=== PATIENT | male | born 1995 | race Caucasian/White ===

== ENCOUNTER 2025-02-27 09:20 | Emergency (ER) | payer OTHER ==
[~2025-02-27] VITALS: Ht 172.7 cm; Wt 168.0 kg
[2025-02-27 09:23] VITALS: TEMP 97.6
[2025-02-27] MEDS: proparacaine 0.5% ophthalmic drops 15ml EACHEYE ONE (11:31)
--- NOTE | 2025-02-27 11:43 | Physician Documentation ---
History of Present Illness ~ Chief Complaint: Eye Pain Stated Complaint: EYE IRRATATION Time Seen by MD: 10:54 HPI 29-year-old male presents to the ED with a complaint of getting a foreign body in his eye yesterday. States he was working on a battery and had part of the corrosion in the battery flick into his eye. He flushed it out extensively. However this morning when he woke up his eye was shut with the goop coming a of the conjunctiva. Reports eye pain and somewhat blurry vision Day of Onset: Feb 27, 2025 Medication Reconciliation Allergies: Coded Allergies: No Known Allergies (Unverified , 02/27/25) Scheduled Erythromycin Base Opth. Ointment* (Erythromycin Opth. Ointment*), 1 APPLIC RIGHTEYE Q4HWA Review of Systems All Other Systems at this time: Reviewed and Negative ROS As stated above in the HPI, otherwise all systems are reviewed and negative. Physical Exam Vital Signs: Temperature: 97.6, Source: Temporal, Heart Rate: 79, Respiratory Rate: 18, BP: 185/95, Pulse Oximetry: 98, Weight: 168.000 Physical Exam General: Alert, no apparent distress. HEENT: PERRL, EOMI, no injection, moist mucous membranes. Right conjunctiva injected Psychiatric: Normal mood and affect. Skin: Normal color, warm and dry. No edema, no ecchymosis. Procedures Eye Procedure Alcaine Drops Administered: Yes Tolerated Procedure Well?: yes, no complications Procedure Note Utilize Wood's lamp with proparacaine and fluorescein found a notable corneal abrasion in his superior left aspect of the eye no foreign bodies were identified Progress Results/Orders Results/Orders Completed Orders - CARLTIA DAVIS NP Proparacaine Ophth Solution (Alcaine Oph (02/27/25 11:15) Medications Received in ER Medications (Trade) Dose Ordered Sig/Sergio Route PRN Reason Start Time Stop Time Status Last Admin Dose Admin (Alcaine ophth solution) 2 drop ONCE ONCE EACHEYE 02/27/25 11:15 02/27/25 11:16 DC 02/27/25 11:31 2 DROP Vital Signs 02/27/25 02/27/25 09:23 12:01 Temp 97.6 Pulse 79 60 Resp 18 16 B/P (MAP) 185/95 179/97 Pulse Ox 98 96 Medical Decision Making Additional information obtaine: N/A Findings I am highly suspicious of a minor corneal abrasion in the upper left aspect of the patient's right eye going to treat him with the erythromycin and have him follow up in the outpatient setting Ear Diff. Dx: Considerations: Unlikely: Abrasion, Cerumen impaction, Foreign body, Otitis externa, Barotrauma, Otitis media, Perforation, Referred pain- dental, Referred pain-pharyngitis, Referred pain-sinusitis, Referred pain-TMJ syn., Tympanic Membrane Injury, Other Eye Diff. Dx: Considerations: Include: Chalaz[place], Conjuctivits-allergic, Con juctivitis-bacterial, Conjuctivits-chlamydial, Conjuctivitis-viral, Corneal abrasion, Corneal laceration, Corneal ulceration, Foreign body-conjuctiva, Foreign body-corneal, Foreign body-intraocular, Foreign body-lid, Glaucoma, Globe rupture, Hordeolum, Iritis, Orbital cellulitis, Periobital cellulitis, Retinal artery occulsion, Retinal vein occlusion, Rust ring, Subconjunctival hem , Ultraviolet keratitis, Uveitis, Vitreous hemorrhage, Other Nose Diff. Dx: Considerations: Unlikely: Abrasion, Anterior nasal bleed, Avulsion, Contusion, Coagulopathy, Fracture-nasal bone, Fracture-septum, Hypertension, Laceration, Other, Posterior nasal bleed, Retained foreign body, Septal hematoma Tooth Diff. Dx: Considerations: Unlikely: Alveolar fracture, Aveolar osteitis, ANUG, Facial cellulitis, Periapical abscess, Periodontal abscess, Post- extraction bleeding, Pulpitis, Trigeminal neuralgia, Tooth-avulsion, Tooth- eruption, Tooth-fracture, Tooth-subluxation, Other Throat Diff Dx: Considerations: Unlikely: AIDS, Epiglottitis, Esophageal candidiasis, Hand foot mouth disease, Herpangina, Herpetic stomatitis, Herpes simplex, Infection mononucleosis, Immunodeficiency, Armond's angina, Peritonsillar abscess, Peritonsillar cellulitis, Pharyngitis-diphtheria, Pharyngitis-strepococcal, Pharyngitis-viral, Thrush, URI, Other Departure Disposition: HOME / SELF CARE / HOMELESS Impression: Primary Impression: Corneal abrasion Discharge Instructions: Corneal Abrasion Referrals: NO PRIMARY CARE PROVIDER (PCP) Prescriptions Erythromycin Base Opth. Ointment* (Erythromycin Opth. Ointment*) 1 Gm Tube 1 APPLIC SUZANNARashmi Q4HWA, #1 EACH Prov: CARLITA DAVIS CLINICAL DATA COORDINATOR 02/27/25 Education Educated: Patient Signature Scribe Signature: r Attestation: Scribed for Carlita Davis Needle Bar Molder by Carlita Davis - RONALD . 02/27/25 11:44 CARLITA DAVIS NP Feb 27, 2025 11:43
[2025-02-27] MEDS ORDERED: ERYT1OIN6 RIGHTEYE (11:44)
[2025-02-27 12:01] VITALS: BP 179/97; PULSE 60; RESP 16; O2SAT 96
== END 2025-02-27 12:04 | disposition home or self-care (01) ==
LOC: ER 09:21
DX: S05.02XA Injury of conjunctiva and corneal abrasion without foreign body, left eye, initial encounter (principal); W44.9XXA Unspecified foreign body entering into or through a natural orifice, initial encounter; Y93.89 Activity, other specified; Y92.89 Other specified places as the place of occurrence of the external cause; Y99.8 Other external cause status
CPT/HCPCS: 99283